=== PATIENT | male | born 1945 | race Caucasian/White ===

== ENCOUNTER → 2020-08-16 | Outpatient (CLI) | payer OTHER ==
[~2020-08-16] VITALS: Ht 182.9 cm; Wt 96.6 kg
[~2020-08-16] MED LIST: ASA81BEC PO; SIMVASTATIN80 MG PO; TRAMADOL 50 MG50 MG PO; VITAMIN B-121000 MC2 PO; VITAMIN D3 COM1 EACH PO
--- NOTE | ~2020-08-16 | HPC ---
[facility] [place] [address] PAIN MANAGEMENT CONSULTATION Name: LEIDA ROBINS III Room #: REG [facility]#: [id number] Admission: 08/16/20 Attend Phys: Wong Henry DO Discharge: Date of : 49 Report #: [id number] THIS REPORT FOR: cc: Avila Martinez MD, Steven E. MD Johnson, James E. DO ~ DOC #: [id number] cc: JAKE Obando DO DATE OF SERVICE: 08/16/2020 REFERRING NURSE PRACTITIONER: Janee Cross CHIEF COMPLAINT: Low back pain, bilateral lower extremity pain. HISTORY OF PRESENT ILLNESS: As you know, the patient is a 75-year-old male who reports acute onset of low back pain, bilateral lower extremity pain, presented on 07/15/2020. The patient denies any specific injury or trauma that may have led to symptom development. He has been trialing [id number] medications, rest and relaxation without much in the way of improvement in symptoms. The patient then sought evaluation through his primary care physician, Dr. Avila Martinez, who referred him on to Neurosurgery to discuss surgical options. He was seen in consultation per the request of Dr. Martinez on 08/15/2020. At that visit, the patient and the surgical team discussed surgical options, determined that the patient would be better off trialing conservative treatment before looking towards more aggressive therapies. He was subsequently referred to our clinic. He has been offered physical therapy and a CS for injections. The patient reports today his pain is intermittent. He describes the pain as cramping, aching, pulling and sharp. Places his current pain score at 2/10 daily, average at 4/10, worst pain is a 7/10. The patient states his pain is exacerbated with walking too much. He states his pain is improved with resting. He has been referred to our service to discuss interventional treatment options to address low back pain, bilateral lower extremity symptoms. PAST MEDICAL HISTORY: 1. Hypercholesterolemia. 2. Peripheral neuropathy. 3. Hearing loss. 4. Right elbow pain. 5. Cervical spondylosis. PAST SURGICAL HISTORY: Lumbar laminectomy. SOCIAL HISTORY: The patient denies tobacco, IV or illicit drug use. Admits approximately 3 alcoholic beverages per week. 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 He is not in litigation in regards to pain. ALLERGIES: SULFA AND NAPROXEN. CURRENT MEDICATIONS: Simvastatin 80 mg per day, aspirin 81 mg per day, ibuprofen 200 mg once a day, tramadol 50 mg every 6 hours p.r.n. for pain. REVIEW OF SYSTEMS: Positive for wearing corrective eyewear, hearing loss with tinnitus, chronic low back pain, bilateral lower extremity pain. All other review of systems negative per 12-point review of systems other than those listed in history of present illness. Pain impact score 29/70, moderate interference of daily activities secondary to pain. PHYSICAL EXAMINATION: VITAL SIGNS: Blood pressure 139/83, pulse 81, respiratory rate 20, unlabored. The patient is 98% on room air, height 6 feet tall, weight 213 pounds, BMI calculated 28.9. GENERAL: Well-developed, well-nourished, well-hydrated 75-year-old male appearing stated age, no acute distress. Awake, alert and oriented x3. Current pain score is rated at 3/10. HEENT: Normocephalic, atraumatic. Pupils are round and responsive. He is wearing mask in compliance with COVID-19 regulations. He is deemed a good historian. LUNGS: Clear. No wheeze, rhonchi or rales. CARDIOVASCULAR: Regular. No appreciable gallop, no rub. ABDOMEN: Soft, nontender, nondistended, normoactive bowel sounds. EXTREMITIES: Show no clubbing, no cyanosis and no appreciable edema. MUSCULOSKELETAL: Lower extremity strength equal and symmetrical 5/5. Muscle bulk and tone is equal and symmetrical comparing left lower extremity to right. Seated straight leg raising negative. Supine straight leg raising negative. Fabere's test is negative. Modified Gaenslen's positive for axial low back pain. There is tenderness to palpation over the paraspinal musculature of lower lumbar spine. No spinous process tenderness. There is decreased range of motion of the lumbar with rotation and lateral flexion. Deep tendon reflexes are decreased, but symmetrical 1+/4. ASSESSMENT: 1. Lumbar radiculopathy. 2. Lumbosacral spondylosis with radiculopathy. 3. Facet arthropathy of lumbar spine. 4. Chronic intractable pain. PLAN: based on today's physical exam and history the patient has provided, the [address] [place] [address] PAIN MANAGEMENT CONSULTATION Name: LEIDA ROBINS III Room #: REG [facility]#: [id number] Admission: 08/16/20 Attend Phys: Wong Henry DO Discharge: Date of : 49 Report #: [id number] description the patient uses in regards to pain, what appears is that the patient is suffering from two different pain generators. The first is a lumbar radiculopathy with bilateral lower extremity symptoms with radiation of symptoms down the left lower extremity. He is also suffering from facet arthropathy at the lower lumbar level. This is contributing some to his axial back symptoms. We have discussed with the patient the findings of his recent MRI showing the changes most consistent at the L3-L4 level that shows a left foraminal L3 nerve root impingement which is the distribution of the patient's current symptoms. After a discussion of the MRI and the physical exam, we then discussed treatment options and following was discussed with the patient today. 1. We discussed physical therapy, stretching exercise, core strengthening as a treatment option. We discussed medication management with neuropathic pain medications such as amitriptyline, nortriptyline, Cymbalta and Lyrica. We discussed lumbar epidural injections under fluoroscopic guidance for which the patient was referred to our clinic. We also discussed spinal cord stimulator therapy as a treatment option and ultimately decompression at the L3-L4 level to address symptoms. After reviewing risks and benefits of all proposed treatment options, the patient chose to move forward with pre-approvals to undergo a lumbar epidural injection under fluoroscopic guidance. 2. The patient was advised due to third green party payer restrictions, authorization would have to be obtained before the patient could undergo a lumbar epidural injection. We recommend the patient continue with current medication management as we achieve the authorization for the patient to undergo the first in the series of lumbar epidural injections. This authorization could take anywhere from 4-7 working days, we will begin this process immediately. 3. No medication changes made at today's visit. We recommend the patient continue current medical therapy as prior prescribed. 4. We plan to see the patient back in followup visit once we have authorization for him to undergo the first in the series of lumbar epidural injections under fluoroscopic guidance. 5. We wish to thank nurse practitioner, Janee Cross for the referral of the patient to our clinic. We will keep you apprised of his response to treatment as we address lumbar radicular symptoms and any facet arthropathy pain he may be experiencing. Again, we wish to thank you for the opportunity to see the patient in consultation. Wong Henry DO JEJ/EKT By: [id number] Wong Henry DO /nt
[2020-08-16 14:53] VITALS: BP 139/83
--- NOTE | 2020-08-16 15:12 | NUR ---
Pain Clinic Assessment: 1. History of Osteoarthritis: Not Applicable History of Rheumatoid Arthritis: Not Applicable 2. Height: 6 ft. 0 in. 182.9 cm. Weight: 213.0 lb. oz. 96.616 kg. Patient's BMI: 28.9 3. Vital Signs: BP: 139/83 Pulse: 81 Resp: 20 Temp: 02 Sat: 98 ECG Mon: 4. Pain Intensity: 3 5. Fall Risk: Dizziness: N Needs help standing or walking: N Fallen in the last 3 months: N Fall risk comments: 6. Patient on Blood Thinner: None 7. History of Hypertension: N 8. Opioid Therapy greater than 6 weeks: Opiate Contract Signed: 9. Risk Assessment Tool Provided: 0 LOW RISK 10. Functional Assessment Tool: 11. Recreational Drug Use: Never Drug Type: Tobacco Use: Never Smoker Tobacco Type: Amount or Packs/day: How Many Years: Alcohol Use: Yes Frequency: Monthly Quant: 3
== END ==
LOC: PAIN 06:50
PROVIDERS: ATTEND Anesthesiology Pain Medicine
DX: M47.27 Other spondylosis with radiculopathy, lumbosacral region (principal); G89.4 Chronic pain syndrome; Z79.891 Long term (current) use of opiate analgesic; Z79.899 Other long term (current) drug therapy

== ENCOUNTER → 2020-08-23 | Outpatient (CLI) | payer OTHER ==
[~2020-08-23] VITALS: Ht 182.9 cm; Wt 95.3 kg
[2020-08-23 13:24] VITALS: BP 150/88
--- NOTE | 2020-08-26 12:39 | HPC ---
[facility] [place] [address] PAIN MANAGEMENT CONSULTATION Name: LEIDA ROBINS III Room #: REG [facility]#: [id number] Admission: 08/23/20 Attend Phys: Wong Henry DO Discharge: Date of : 47 Report #: [id number] THIS REPORT FOR: cc: Avila Martinez MD,Wong Rawls MD, DO ~ DOC #: [id number] cc: JAKE Obando, Marco Murillo MD, MD Wong Gomez DO DATE OF SERVICE: 08/23/2020 CHIEF COMPLAINT: Low back pain, bilateral lower extremity pain. HISTORY OF PRESENT ILLNESS: As you know, the patient is a pleasant 75-year-old male referred to our clinic by Neurosurgery to discuss interventional treatment options to address low back pain and bilateral lower extremity pain. The patient trialed conservative treatment at our last visit, but states he made a mistake and should have undergone the epidural injection proposed. He returns today in followup visit reporting pain score 5/10. States his pain is aching, cramping, sharps, pulling. When describing symptoms, he indicates standing, walking, getting out of the bed or chair, rising from a couch, coughing and sneezing exacerbates symptoms. Rest, Icy Hot and topical agents tend to improve pain. He has been referred to our service to discuss interventional treatment options. He is requesting a lumbar epidural injection today. ALLERGIES: SULFA AND NAPROXEN. CURRENT MEDICATIONS: See chart. SOCIAL HISTORY: The patient denies tobacco, IV or illicit drug use. Admits approximately 3 alcohol beverages per week. 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 IMAGING: No new imaging available. PHYSICAL EXAMINATION: VITAL SIGNS: Blood pressure 150/88, pulse 85, respiratory rate 14 and unlabored. The patient 100% on room air, height 6 feet tall, weight 210.2 pounds, BMI calculated at 28.5. GENERAL: Well-developed, well-nourished, well-hydrated 75-year-old male appearing stated age, pain is rated today, 5/10. HEENT: Normocephalic, atraumatic. Pupils are round. He is wearing corrective eyewear. He is also wearing a mask in compliance with COVID-19 regulations. EXTREMITIES: Show no clubbing, no cyanosis and no edema. MUSCULOSKELETAL: Lower extremity strength remains symmetrical again today 5/5. Seated straight leg raising negative. Supine straight leg raising negative. [address] [address] PAIN MANAGEMENT CONSULTATION Name: LEIDA ROBINS Georgie [facility] Room #: REG [facility] Jose De JesusScott#: [id number] Admission: 08/23/20 Attend Phys: Wong Henry DO Discharge: Date of : 49 Report #: [id number] Fabere's test is negative. Modified Gaenslen's positive for axial low back pain. Ankle clonus negative. ASSESSMENT: 1. Lumbar radiculopathy. 2. Lumbosacral spondylosis with radiculopathy. 3. Facet arthropathy, lumbar spine. 4. Chronic intractable pain. PLAN: 1. The patient returns today in followup visit indicating a pain level of about 5/10. He has requested and we will perform a lumbar epidural injection under fluoroscopic guidance. The patient has been advised of the risks and the benefits of a lumbar epidural injection. These risks include, but are not necessarily limited to; bleeding, bruising, infection, worsening pain, no relief of pain, temporary or permanent muscle weakness, temporary or permanent nerve damage, possible paralysis, post-dural puncture headache and . The patient states understood and wished to proceed. 2. No medication changes made at today's visit. The patient will continue current medical therapy as prior prescribed. 3. We plan to see the patient back in followup visit in 30 days. At that time, review efficacy of today's epidural injection and determine next in the series of epidural injections would be recommended. PROCEDURE NOTE DESCRIPTION OF PROCEDURE: L5-S1 right parasagittal epidural steroid injection under fluoroscopic guidance. This is the first procedure of the first series that the patient is undergoing. After obtaining written consent, the patient was taken back to the fluoroscopy suite, placed in a prone position with pillow under the abdomen to decrease lumbar lordosis. The skin overlying the lumbosacral area was then prepped and draped in aseptic fashion. The L5-S1 vertebral interspace was then identified by AP fluoroscopy. The skin and subcutaneous tissue overlying the target site of injection was anesthetized with 3 mL 1% lidocaine. A 20-gauge 3-1/2 inch Tuohy needle was then advanced under fluoroscopic guidance towards the epidural space using a right parasagittal approach. The epidural space was identified using loss of resistance to air technique. After negative aspiration for heme or cerebrospinal fluid, a total of 1 mL of Omnipaque was injected. A lumbar epidurogram was confirmed using both AP and lateral fluoroscopy. After negative aspiration for heme or cerebrospinal fluid, 5 mL of a solution containing 2 mL 40 mg per mL 80 mg total triamcinolone along with 3 mL of lidocaine 1% was injected in increments. Contrast spread was noted [address] [address] PAIN MANAGEMENT CONSULTATION Name: LEIDA ROBINS III Room #: [facility]#: [id number] Admission: 08/23/20 Attend Phys: Wong Henry DO Discharge: Date of : 49 Report #: [id number] posterior epidural space. The needle was then retracted approximately half way and needle tract flushed with 1 mL of 1% lidocaine. Needle was then removed. There were no apparent sensory or motor deficits in the lower extremity following the procedure. A sterile bandage was placed over the injection site. The heart rate, pulse, oximetry and blood pressure were continuously monitored after the procedure. There were no apparent complications. The patient tolerated the procedure well and was carefully escorted to the recovery room in stable condition. There were no apparent complications. After meeting discharge criteria, the patient was then discharged home. Wong Henry DO JEJ/AMI/UPE <ELECTRONICALLY SIGNED> By: Wong Henry DO 08/26/20 1239 1343 2149 Wong Henry DO /nt
== END | disposition home or self-care (01) ==
LOC: PAIN 10:09
PROVIDERS: ATTEND Anesthesiology Pain Medicine
DX: M47.26 Other spondylosis with radiculopathy, lumbar region (principal); M47.27 Other spondylosis with radiculopathy, lumbosacral region; M54.5 Low back pain; G89.29 Other chronic pain; Z98.890 Other specified postprocedural states; Z79.899 Other long term (current) drug therapy; Z88.2 Allergy status to sulfonamides; Z88.8 Allergy status to other drugs, medicaments and biological substances

== ENCOUNTER → 2020-09-27 | Outpatient (CLI) | payer OTHER ==
[~2020-09-27] VITALS: Ht 182.9 cm; Wt 93.2 kg
[2020-09-27 10:13] VITALS: BP 167/83
--- NOTE | 2020-09-27 10:23 | NUR ---
Pain Clinic Assessment: 1. History of Osteoarthritis: Not Applicable History of Rheumatoid Arthritis: Not Applicable 2. Height: 6 ft. 0 in. 182.9 cm. Weight: 205.4 lb. oz. 93.169 kg. Patient's BMI: 27.9 3. Vital Signs: BP: 167/83 Pulse: 83 Resp: 16 Temp: 02 Sat: 100 ECG Mon: 4. Pain Intensity: 8 5. Fall Risk: Dizziness: N Needs help standing or walking: N Fallen in the last 3 months: Y Fall risk comments: 6. Patient on Blood Thinner: None 7. History of Hypertension: N 8. Opioid Therapy greater than 6 weeks: Y Opiate Contract Signed: 9. Risk Assessment Tool Provided: 0 LOW RISK 10. Functional Assessment Tool: 11. Recreational Drug Use: Never Drug Type: Tobacco Use: Never Smoker Tobacco Type: Amount or Packs/day: How Many Years: Alcohol Use: Yes Frequency: Quant:
--- NOTE | 2020-09-28 08:37 | HPC ---
[facility] [place] [address] PAIN MANAGEMENT CONSULTATION Name: LEIDA ROBINS III Room #: REG [facility]#: [id number] Admission: 09/27/20 Attend Phys: Wong Henry DO Discharge: Date of : 47 Report #: [id number] THIS REPORT FOR: cc: Avila Martinez MD,Wong Rawls MD, DO ~ cc: Avila Martinez MD, JAKE Obando, Marco Murillo MD DATE OF SERVICE: 09/27/2020 CHIEF COMPLAINT: Low back pain, bilateral lower extremity pain. HISTORY OF PRESENT ILLNESS: As you know, the patient is a pleasant 75-year-old male referred to our clinic by Neurosurgery to discuss interventional treatment options to address low back pain, bilateral lower extremity pain with paresthesias. He is unfortunately trialled conservative treatment with no benefit. He has undergone the first in a series of lumbar epidural injections per the request of Neurosurgery team 08/23/2020 with improvement in symptoms. Unfortunately, his pain did return. He is now placing his pain at 8/10. He returns today in followup visit requesting next in the series of epidural injections in hopes of further improvement and prolonged benefit. The patient denies injury/trauma or any changes in medical management since her last visit. ALLERGIES: SULFA, NAPROXEN. CURRENT MEDICATIONS: See chart. SOCIAL HISTORY: The patient denies tobacco, IV or illicit drug use. Admits approximately 3 alcohol beverages per week. 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 IMAGING: No new imaging available. PQRS: The patient has known arthritic changes of the lumbar spine. No rheumatoid arthritis. He is placing current pain score at 8/10. He is not a fall risk, but has had a fall in the last a couple of days. He states he missed the bottom 2 stairs at his home, falling on his left side. He is on no blood thinners. He is not treated for hypertension. He is on chronic opioids, has a low opioid addiction potential. Pain impact today is 29/70, moderate interference of daily activities secondary to pain. PHYSICAL EXAMINATION: VITAL SIGNS: Blood pressure 167/83, pulse 83, respiratory rate 16 and unlabored. The patient 100% on room air, height 6 feet tall, weight 205.4 pounds, BMI calculated 27.9. GENERAL: Well-nourished, well-nourished, well-hydrated 75-year-old male appearing stated age, pain is rated today at 8/10. [address] [address] PAIN MANAGEMENT CONSULTATION Name: LEIDA ROBINS Georgie [id number] Admission: 09/27/20 Attend Phys: Wong Henry DO Discharge: Date of : 49 Report #: [id number] HEENT: Normocephalic, atraumatic. The patient is wearing corrective eyewear. He is currently in a mask per COVID-19 regulations. EXTREMITIES: Show no clubbing, no cyanosis. No appreciable edema. MUSCULOSKELETAL: Seated straight leg raising negative. Supine straight leg raising negative. Fabere's test is negative. Modified Gaenslen's positive for axial low back pain. Ankle clonus negative. Babinski is negative. Strength is equal and symmetrical in lower extremities, 5/5. Muscle bulk and tone is equal and symmetrical in comparing lower extremities. ASSESSMENT: 1. Lumbar radiculopathy. 2. Lumbosacral spondylosis with radiculopathy. 3. Facet arthropathy of the lumbar spine. 4. Chronic intractable pain. PLAN: 1. The patient returns today in followup visit to undergo next in the series of requested lumbar epidural injections under fluoroscopic guidance. He reports improvement in symptoms with the previous epidural injection, but unfortunately, his symptoms did reoccur. He is requesting next in the series of epidural injections in hopes of providing more prolonged and more profound improvement in symptoms. The patient has been requested by the neurosurgery team to undergo at least 2 epidural injections before considering other options. He has been advised risks and benefits of the procedure, states understood and wished to proceed. 2. No medications were provided at today's visit. The patient will continue current medical therapy as prior prescribed. 3. We will see the patient back in followup visit on an as needed basis for the third in the series of epidural injections. PROCEDURE NOTE DESCRIPTION OF PROCEDURE: L4-L5 interlaminar epidural steroid injection under fluoroscopic guidance. This is the second procedure of the first series that the patient is undergoing. After obtaining written consent, the patient was taken back to the fluoroscopy suite, placed in a prone position with pillow under the abdomen to decrease lumbar lordosis. The skin overlying the lumbosacral area was then prepped and draped in aseptic fashion. The L4-L5 vertebral interspace was then identified by AP fluoroscopy. The skin and subcutaneous tissue overlying the target site of injection was anesthetized with 3 mL 1% lidocaine. A 20-gauge 3-1/2 inch Tuohy needle was then advanced under fluoroscopic guidance towards the epidural space using a parasagittal approach. The epidural space [address] [address] PAIN MANAGEMENT CONSULTATION Name: LEIDA ROBINS III Room #: [facility]#: [id number] Admission: 09/27/20 Attend Phys: Wong Henry DO Discharge: Date of : 49 Report #: [id number] was identified using loss of resistance to air technique. After negative aspiration for heme or cerebrospinal fluid, a total of 1 mL of omnipaque was injected. A lumbar epidurogram was confirmed using both AP and lateral fluoroscopy. After negative aspiration for heme or cerebrospinal fluid, 5 mL of a solution containing 2 mL 40 mg per mL 80 mg total triamcinolone along with 3 mL of lidocaine 1% was injected in increments. Contrast spread was noted in posterior epidural space. The needle was then retracted approximately half way and needle tract flushed with 1 mL of 1% lidocaine. Needle was then removed. There were no apparent sensory or motor deficits in the lower extremity following the procedure. A sterile bandage was placed over the injection site. The heart rate, pulse, oximetry and blood pressure were continuously monitored after the procedure. There were no apparent complications. The patient tolerated the procedure well and was carefully escorted to the recovery room in stable condition. There were no apparent complications. After meeting discharge criteria, the patient was then discharged home. <ELECTRONICALLY SIGNED> By: Wong Henry DO 09/28/20 0837 [id number] 2101 Wong Henry DO /nt
== END | disposition home or self-care (01) ==
LOC: PAIN 07:13
PROVIDERS: ATTEND Anesthesiology Pain Medicine
DX: M47.27 Other spondylosis with radiculopathy, lumbosacral region (principal); M47.26 Other spondylosis with radiculopathy, lumbar region; G89.29 Other chronic pain; Z98.890 Other specified postprocedural states; Z79.899 Other long term (current) drug therapy; Z88.2 Allergy status to sulfonamides; Z88.8 Allergy status to other drugs, medicaments and biological substances